=== PATIENT | male | born 2000 | race Caucasian/White ===

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

== ENCOUNTER 2019-05-24 17:30 | Emergency (ER) | payer BC ==
[~2019-05-24] VITALS: Ht 182.9 cm; Wt 85.3 kg
[~2019-05-24 17:30] MED LIST changes: -NS IV 1000 ML 1,000 ML IV ONE; -NS IV 1000 ML 1,000 ML ONE
--- OUTSIDE RECORDS SUMMARY | 2019-05-24 17:36 | XMS REPORT | Continuity of Care Document ---
Author Organization Unknown Address Unknown Allergies Active Description Code Type Severity Reaction Onset Reported/Identified Relationship to Patient Clinical Status Yes ceftriaxone sodium [id number] Drug Allergy Unknown N/A 12/07/2011 Medications There is no data. Problems Date Dx Coded Attending Type Code Diagnosis Diagnosed By 01/22/2016 TRELL ESPARZA DO Ot E10.9 01/22/2016 TRELL ESPARZA DO Ot K52.9 09/06/2016 MARLON ANDREWS MD Ot S69.81XA OTH INJURIES OF RIGHT WRIST, HAND AND FI 09/06/2016 MARLON ANDREWS MD Ot X58.XXXA EXPOSURE TO OTHER SPECIFIED FACTORS, INI 09/06/2016 MARLON ANDREWS MD Ot Y99.8 OTHER EXTERNAL CAUSE STATUS 09/11/2016 MARLON ANDREWS MD Ot S69.81XA OTH INJURIES OF RIGHT WRIST, HAND AND FI 09/11/2016 MARLON ANDREWS MD Ot X58.XXXA EXPOSURE TO OTHER SPECIFIED FACTORS, INI 09/11/2016 MARLON ANDREWS MD Ot Y99.8 OTHER EXTERNAL CAUSE STATUS 09/14/2016 MARLON ANDREWS MD Ot S69.81XA OTH INJURIES OF RIGHT WRIST, HAND AND FI 09/14/2016 MARLON ANDREWS MD Ot X58.XXXA EXPOSURE TO OTHER SPECIFIED FACTORS, INI 09/14/2016 MARLON ANDREWS MD Ot Y99.8 OTHER EXTERNAL CAUSE STATUS 10/11/2016 MARLON ANDREWS MD Ot E87.1 HYPO-OSMOLALITY AND HYPONATREMIA 10/11/2016 MARLON ANDREWS MD Ot R82.4 ACETONURIA 10/23/2016 MARLON ANDREWS MD Ot E87.1 HYPO-OSMOLALITY AND HYPONATREMIA 10/23/2016 MARLON ANDREWS MD Ot R82.4 ACETONURIA 11/08/2016 MARLON ANDREWS MD Ot E86.0 DEHYDRATION 01/10/2017 MARLON ANDREWS MD Ot E86.0 DEHYDRATION Procedures There is no data. Results There is no data. Encounters ACCT No. Visit Date/Time Discharge Status Pt. Type Provider Facility Loc./Unit Complaint [id number] 01/11/2017 00:10:00 01/11/2017 23:59:59 CLS Preadmit MARLON ANDREWS MD [facility] DEHYDRATION [id number] 10/13/2016 12:44:00 01/10/2017 00:01:00 DIS Outpatient MARLON ANDREWS MD [facility] DEHYDRATION [id number] 10/09/2016 13:52:00 10/09/2016 23:59:59 CLS Outpatient MARLON ANDREWS MD [facility] HYPONATREMIA,KETONURIA [id number] 09/05/2016 14:12:00 09/05/2016 23:59:59 CLS Outpatient MARLON ANDREWS MD [facility] RAD HYPEREXTENSION INJURY OF THUMB [id number] 01/21/2016 19:25:00 01/22/2016 01:09:00 DIS Emergency TRELL ESPARZA DO [facility] ER [id number] 02/22/2014 14:03:00 02/22/2014 16:13:00 DIS Emergency
[2019-05-24] MEDS ORDERED: IBUPROFEN 800 MG (MOTRIN) TAB PO STA (17:56)
[2019-05-24] MEDS ORDERED: LIDOCAINE 2% VISCOUS 15 ML UDC PO ONE (18:00)
--- NOTE | 2019-05-24 18:03 | ED EENT ---
History of Present Illness General Chief Complaint: Oral/Throat Problems Stated Complaint: THROAT PAIN Nursing Triage Note: pt feels like he has something stuck in his throat. Pt was vomiting this morning. Pt did not notice choking on anything. Pt states he can not swallow very well Source: patient Exam Limitations: no limitations History of Present Illness Date Seen by Provider: May 24, 2019 Time Seen by Provider: 17:52 Initial Comments 18 yo male patient presents for c/o feeling like something is stuck in his throat since vomiting this AM. patient states he worked out right after eating this morning causing him to vomit. He reports feeling like the cereal scratched his throat. He denies choking or difficulty breathing. He states he is able to swallow liquids and soft foods without difficulty. He denies nausea or any further vomiting. Timing/Duration: abrupt Location: throat Prearrival Treatment: no prearrival treatment Modifying Factors: Worse With Other (worse with swallowing) Allergies and Home Medications Allergies Coded Allergies: ceftriaxone sodium (Unverified Allergy, Unknown, 12/07/11) Home Medications Famotidine 10 Mg Tablet, 1 EACH PO BID, (Reported) Fexofenadine Hcl 180 Mg Tablet, 1 TAB PO DAILY, (Reported) Insulin Human Lispro 100 U/Ml Vial, Unknown Dose SQ TIDAC, (Reported) Lidocaine HCl 15 Ml Solution, 5 ML PO QID PRN for pain Prescribed by: RADU WILSON on 05/24/19 [id number] Patient Home Medication List Home Medication List Reviewed: Yes Review of Systems Review of Systems Constitutional: No chills, No dizziness, No fever, No malaise Eyes: No Symptoms Reported Ears: No Symptoms Reported Nose: no symptoms reported Mouth: no symptoms reported Throat: see HPI, pain; denies swelling, denies neck stiffness, denies hoarse, denies aphonia, denies muffled; painful swallowing; denies difficulty with fluids Respiratory: No cough, No dyspnea on exertion, No phlegm, No short of breath, No stridor, No wheezing Cardiovascular: no symptoms reported Gastrointestinal: see HPI; No abdominal pain, No constipation, No diarrhea, No loss of appetite, No melena, No nausea, No vomiting (emesis x1 this AM) Skin: no symptoms reported Neurological: No Symptoms Reported All Other Systems Reviewed Negative Unless Noted: Yes (Negative excepted noted.) Past Qsjqmjr-Rrntcq-Xmmddt Hx Past Med/Social Hx: Reviewed Nursing Past Med/Soc Hx Patient Social History Alcohol Use: Denies Use Recreational Drug Use: No Recent Foreign Travel: No Contact w/Someone Who Travel: No Recent Infectious Disease Expo: No Recent Hopitalizations: No (RSV 9 MONTHS OLD) Ebola Symptoms: Vomiting Immunizations Up To Date Tetanus Booster (TDap): Less than 5yrs Date of Influenza Vaccine: Sep 26, 2016 Past Medical History Surgeries: Yes (TEAR DUCT SURGERY TODDLER, right shoulder) Respiratory: No Cardiac: No Neurological: No Reproductive Disorders: No Gastrointestinal: No Musculoskeletal: No Endocrine: Yes (TYPE 1) Diabetes, Insulin dep Cancer: No Psychosocial: No Integumentary: No Blood Disorders: No Family Medical History Reviewed Nursing Family Hx No Pertinent Family Hx Physical Exam Vital Signs Vital Signs - First Documented 05/24/19 17:34 Temp 97.1 Pulse 87 Resp 18 B/P (MAP) 138/74 O2 Delivery Room Air Height, Weight, BMI Height: 6'0" Weight: 188lbs. 0.0oz. 85.708693bb; 25.49 BMI Method:Stated General Appearance: WD/WN, no apparent distress Eyes: bilateral eye normal inspection, bilateral eye PERRL, bilateral eye EOMI Ears: bilateral ear auricle normal, bilateral ear canal normal, bilateral ear TM normal Nose: normal inspection Mouth/Throat: normal mouth inspection; No excessive drooling, No foreign body, No pharynx swelling, No pharynx tenderness, No trismus, No uvula swelling, No voice changes; other (mild pharyngeal erythema) Neck: non-tender, full range of motion, supple, normal inspection Cardiovascular: regular rate, rhythm, no murmur Respiratory: lungs clear, normal breath sounds, no respiratory distress, no accessory muscle use Gastrointestinal: normal bowel sounds, non tender, soft, no organomegaly Neurologic/Psychiatric: alert, normal mood/affect, oriented x 3 Skin: normal color, warm/dry Progress/Results/Core Measures Results/Orders My Orders Orders - RADU WILSON Ibuprofen Tablet (Motrin Tablet) (05/24/19 17:56) Soft Tissue Neck (05/24/19 17:56) Lidocaine 2% Viscous 15 Ml (Xylocaine Vi (05/24/19 18:00) Medications Given in ED Current Medications Medications Dose Ordered Sig/Augustus Route Start Time Stop Time Status Last Admin Dose Admin Lidocaine HCl 5 ml ONCE ONCE PO 05/24/19 18:00 05/24/19 18:01 DC 05/24/19 18:05 5 ML Vital Signs/I&O 05/24/19 17:34 Temp 97.1 Pulse 87 Resp 18 B/P (MAP) 138/74 O2 Delivery Room Air Diagnostic Imaging Diagonstic Imaging: Xray Comments Date of Exam:05/24/19 SOFT TISSUE NECK INDICATION: Feels like something is stuck in throat. TIME OF EXAM: 6:18 p.m. EXAMINATION: Lateral view of the soft tissues of the neck were obtained. FINDINGS: Prevertebral tissues are normal. Epiglottis is unremarkable. There is a linear calcific density projected just posterior to the tracheal air shadow at the level of C5, indeterminate. This could potentially represent a foreign body within the esophagus. No other abnormality is seen. IMPRESSION: Indeterminate linear density at the level of C5 posterior to the trachea. Small foreign body cannot be entirely excluded. Dictated on workstation # [id number] Reviewed: Reviewed by Me (radiology report reviewed) Departure Communication (Admissions) Patient seen and evaluated. X-RAY. PATIENT GIVEN 5 ML OF VISCOUS LIDOCAINE AND 800 MG IBUPROFEN WITH COMPLETE RESOLUTION OF SYMPTOMS. X-ray findings discussed with Dr. Kwan with recommendations for patient to f/u with his PCP this week. If symptoms do not improve, his PCP may need to order a CT vs MRI of the neck and or referral for EGD. Recommends dsch to home. All findings and recommendations by Dr. Kwan discussed with the patient, he agrees with the plan of care. Impression Primary Impression: Abrasion of pharynx Qualified Codes: S10.11XA - Abrasion of throat, initial encounter Disposition: HOME, SELF-CARE Condition: Improved Departure-Patient Inst. Decision time for Depature: 18:56 Referrals: LEONARDA KWAN RICK D MD (PCP/Family) Primary Care Physician Patient Instructions: Foreign Body, Swallowed, Adult (DC) Add. Discharge Instructions: All discharge instructions reviewed with patient and/or family. Voiced understanding. Medications as instructed. Tylenol 1000 mg by mouth every 6 hours as needed for pain. Motrin 800 mg by mouth every 8 hours as needed for pain. Drink plenty of fluids. Soft diet until symptoms improve, then increase diet as tolerated. Follow-up with your family practitioner for recheck this week. If symptoms do not improve, your PCP may order a CT scan or MRI to further evaluate your symptoms. Call Sunday morning for an appointment time. Return to the emergency department for worsened symptoms or any other concerns. Scripts Lidocaine HCl (Lidocaine HCl Viscous) 15 Ml Solution 5 ML PO QID PRN for pain, #60 ML 0 Refills Prov: RADU WILSON 05/24/19 RADU WILSON May 24, 2019 18:03
--- NOTE | 2019-05-24 18:27 | Diagnostic Imaging Report ---
INDICATION: Feels like something is stuck in throat. TIME OF EXAM: 6:18 p.m. EXAMINATION: Lateral view of the soft tissues of the neck were obtained. FINDINGS: Prevertebral tissues are normal. Epiglottis is unremarkable. There is a linear calcific density projected just posterior to the tracheal air shadow at the level of C5, indeterminate. This could potentially represent a foreign body within the esophagus. No other abnormality is seen. IMPRESSION: Indeterminate linear density at the level of C5 posterior to the trachea. Small foreign body cannot be entirely excluded. Dictated by: Dictated on workstation # [id number]
[2019-05-24] MEDS ORDERED: LIDO15SO2 PO (18:56)
== END 2019-05-24 19:01 | disposition home or self-care (01) ==
LOC: EDUNIT# 17:30 → ER 17:32
DX: S10.11XA Abrasion of throat, initial encounter (principal); E10.9 Type 1 diabetes mellitus without complications; Z88.1 Allergy status to other antibiotic agents; Z79.4 Long term (current) use of insulin; X58.XXXA Exposure to other specified factors, initial encounter
CPT/HCPCS: 70360